=== PATIENT | female | born 1990 | race Caucasian/White ===

== ENCOUNTER 2016-11-21 18:35 | Emergency (ER) | payer OTHER ==
[~2016-11-21 18:35] MED LIST: BACT800T5 PO; CIPR500T93 PO; PYRI200T4 PO
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
[2016-11-21 19:36] VITALS: BP 102/64; PULSE 64; RESP 18; TEMP 97.7; O2SAT 99
== END 2016-11-21 20:03 | disposition home or self-care (01) ==
LOC: NEPD 18:35
DX: F19.90 Other psychoactive substance use, unspecified, uncomplicated (principal)
CPT/HCPCS: 99283

== ENCOUNTER 2017-06-04 03:47 | Emergency (ER) | payer OTHER ==
[~2017-06-04] VITALS: Ht 165.1 cm; Wt 75.0 kg
[2017-06-04 04:09] VITALS: BP 125/67; PULSE 98; RESP 16; TEMP 98.2; O2SAT 100
[2017-06-04] MEDS ORDERED: SULFAMETHOXAZOLE-TRIMETHOPRIM DS 800-160 MG TAB PO ONE (05:45)
[2017-06-04] MEDS ORDERED: CLINDAMYCIN 150 MG CAP PO ONE (05:45)
[2017-06-04] MEDS ORDERED: LIDOCAINE 2%/EPINEPHrine 1:100,000 20ML MDV NERV BLOCK ONE (05:45)
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
[2017-06-04] MEDS ORDERED: DALBAVANCIN INJ 1,500 MG in DEXTROSE 5% IN WATE 500 ML INJ 500 ML IV STA ×2 (06:33)
[2017-06-04] MEDS ORDERED: ASP: Location of Dalbavancin administration OTHER ONE (06:45)
[2017-06-04] MEDS ORDERED: ASP: No known hypersensitivity to Vanco, Telavancin, Dalbavancin OTHER ONE (06:45)
[2017-06-04] MEDS ORDERED: ASP: Does not meet inpatient admission criteria OTHER ONE (06:45)
[2017-06-04] MEDS ORDERED: ASP: Only reason for admit - IV antibiotics OTHER ONE (06:45)
[2017-06-04] MEDS ORDERED: MISCELLANEOUS PHARMACY INFORMATION XX ONE (06:45)
[2017-06-04 07:15] VITALS: BP 122/81; PULSE 76; RESP 16; TEMP 98; O2SAT 99
[2017-06-04 07:19] LABS: AUTOMATED NEUTROPHIL # 6.1 TH/MM3 (1.8-7.7); BASOPHIL # 0.1 TH/MM3 (0-0.2); BASOPHIL % 0.7 % (0.0-2.0); EOSINOPHIL # 0.3 TH/MM3 (0-0.4); EOSINOPHIL % 2.9 % (0.0-4.0); HEMATOCRIT 32.6 % (35.0-46.0); HEMOGLOBIN 11.1 GM/DL (11.6-15.3); LYMPH % 24.3 % (9.0-44.0); LYMPHOCYTE # 2.3 TH/MM3 (1.0-4.8); MEAN CELL VOLUME 80.3 FL (80.0-100.0); MEAN CORPUSCULAR HEMOGLOBIN 27.2 PG (27.0-34.0); MEAN CORPUSCULAR HGB CONC 33.9 % (32.0-36.0); MEAN PLATELET VOLUME 7.5 FL (7.0-11.0); MONO % 6.7 % (0.0-8.0); MONOCYTE # 0.6 TH/MM3 (0-0.9); NEUT % 65.4 % (16.0-70.0); PLATELET COUNT 271 TH/MM3 (150-450); RED BLOOD COUNT 4.06 MIL/MM3 (4.00-5.30); RED CELL DISTRIBUTION WIDTH 13.5 % (11.6-17.2); WHITE BLOOD COUNT 9.4 TH/MM3 (4.0-11.0)
[2017-06-04 07:45] LABS: ALKALINE PHOSPHATASE 84 U/L (45-117); ALT (GPT) 15 U/L (10-53); TOTAL BILIRUBIN ADULT 0.2 MG/DL (0.2-1.0); TOTAL PROTEIN 6.9 GM/DL (6.4-8.2)
[2017-06-04 07:49] LABS: ALBUMIN 2.9 GM/DL (3.4-5.0); AST (GOT) 16 U/L (15-37); BICARBONATE 28.2 MEQ/L (21.0-32.0); BLOOD UREA NITROGEN 9 MG/DL (7-18); CALCIUM 8.7 MG/DL (8.5-10.1); CHLORIDE 106 MEQ/L (98-107); CREATININE 0.61 MG/DL (0.50-1.00); GLOMERULAR FILTRATION RATE 116 ML/MIN (>89); GLUCOSE,RANDOM 99 MG/DL (74-106); SODIUM (NA) 141 MEQ/L (136-145)
[2017-06-04 09:50] VITALS: BP 130/81; TEMP 97.8
== END 2017-06-04 09:50 | disposition home or self-care (01) ==
LOC: NEPE 03:47
DX: L02.414 Cutaneous abscess of left upper limb (principal); L03.114 Cellulitis of left upper limb; B19.20 Unspecified viral hepatitis C without hepatic coma; F19.10 Other psychoactive substance abuse, uncomplicated; Z72.0 Tobacco use
CPT/HCPCS: 10061; 80053; 85025; 96365; 99284; J0875; J7060